=== PATIENT | male | born 1965 | race Hispanic/Latino ===

== ENCOUNTER → 2018-06-03 | Outpatient (CLI) | payer BC | END | disposition home or self-care (01) | LOC: OIH 11:18 | PROVIDERS: ATTEND Physical Medicine & Rehabilitation | DX: M17.11 Unilateral primary osteoarthritis, right knee (principal) | CPT/HCPCS: 73562 ==

== ENCOUNTER → 2024-07-01 | Outpatient (CLI) | payer BC ==
--- NOTE | 2024-07-01 10:41 | HMCIMG ---
US ABDOMINAL COMPLETE HISTORY: Right upper abdominal pain COMPARISON: 06/11/2017 TECHNIQUE: Multiple transverse and longitudinal ultrasound images of the abdomen were obtained. FINDINGS: Abdominal aorta is not well seen limiting evaluation. Flow is seen in the inferior vena cava. Liver measures 19 cm. Gallbladder is contracted. The visualized portion of the pancreas is within normal limits. Liver is echogenic consistent with liver parenchymal disease. No gallstone is seen. Common duct measures 5 mm. Gallbladder wall measures 5 mm. There is right renal cyst measuring 7 x 9 x 10 mm. There is left simple renal cyst measuring 3.1 x 3.1 x 3.5 cm. Both kidneys are seen. Right kidney measures 11.1 x 5.6 x 5.7 cm. Left kidney measures 4.2 x 6.4 x 5.5 cm. No hydronephrosis is seen of the both kidneys. Spleen is enlarged measuring 14.1 cm. The spleen is grossly unremarkable. IMPRESSION: 1. Contracted gallbladder with gallbladder wall thickening. No gallstone or ductal dilatation is seen. 2. No hydronephrosis is seen. Bilateral renal cysts.
== END | disposition home or self-care (01) ==
LOC: RAH 09:16
PROVIDERS: ATTEND Internal Medicine
DX: N28.1 Cyst of kidney, acquired (principal); R16.1 Splenomegaly, not elsewhere classified; K82.8 Other specified diseases of gallbladder; R10.11 Right upper quadrant pain
CPT/HCPCS: 76700